=== PATIENT | female | born 1990 | race Caucasian/White ===

== ENCOUNTER 2017-12-09 12:26 | Emergency (ER) | payer SELFPAY, MEDICAID | END 2017-12-09 14:06 | disposition left against medical advice (07) | LOC: FTE 12:26 | DX: Z53.21 Procedure and treatment not carried out due to patient leaving prior to being seen by health care provider (principal) ==

== ENCOUNTER 2018-09-24 13:00 | Emergency (ER) | payer OTHER ==
[2018-09-24] MEDS: HYDROCODONE/APAP (5/325) TAB PO (16:52)
[2018-09-24] MEDS: LIDOCAINE 2% (MDV) 20 ML INJ INJ (17:06)
== END 2018-09-24 18:07 | disposition home or self-care (01) ==
LOC: FTE 13:00
DX: L02.414 Cutaneous abscess of left upper limb (principal); F17.210 Nicotine dependence, cigarettes, uncomplicated
CPT/HCPCS: 10060; 99282-25